=== PATIENT | female | born 1985 | race American Indian/Alaskan Native ===

== ENCOUNTER 2022-01-25 17:48 | Emergency (ER) | payer SELFPAY ==
--- NOTE | 2022-01-25 18:21 | Emergency Department Report ---
ED Back Pain/Injury HPI - General Chief Complaint: Back Pain/Injury Stated Complaint: BACK PAIN Time Seen by Provider: 01/25/22 18:06 Source: EMS Limitations: No Limitations - History of Present Illness Initial Comments: Patient presents secondary to back pain. [place] had onset of back pain. 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 She states that while doing that she had abrupt onset of right hip and back pain that radiates in the right leg. She has not been able to tolerate the pain tonight and came here. She stated home today because of the pain. She has no left leg pain. She is never had symptoms of this nature before. She does report a numbness and tingling down the posterior aspect of the right leg. This goes all the way down to the toes. There is no saddle anesthesia. She denies incontinence of bowel or bladder. - Related Data Previous Rx's Medication Instructions Recorded Last Taken Type HYDROcodone/APAP 5-325 [[place] 1 each PO Q6HR PRN #15 tablet 01/25/22 Unknown Rx 5/325] methylPREDNISolone [Medrol 4MG 4 mg PO DAILY #1 pack 01/25/22 Unknown Rx DOSEPAK (21 tabs)] Allergies Allergy/AdvReac Type Severity Reaction Status Date / Time No Known Allergies Allergy Verified 01/25/22 17:50 ED Review of Systems ROS: Stated complaint: BACK PAIN Other details as noted in HPI Comment: All other systems reviewed and negative Constitutional: denies: fever Eyes: denies: vision change ENT: denies: epistaxis Respiratory: denies: cough Cardiovascular: denies: chest pain Endocrine: denies: unexplained weight loss Gastrointestinal: denies: abdominal pain Genitourinary: denies: dysuria Musculoskeletal: as per HPI Skin: denies: rash Neurological: denies: headache Hematological/Lymphatic: denies: easy bruising ED Past Medical Hx - Past Medical History Previous Medical History?: No - Family History Family history: no significant - Medications Home Medications: Home Medications Medication Instructions Recorded Confirmed Last Taken Type HYDROcodone/APAP 5-325 [[place] 1 each PO Q6HR PRN #15 tablet 01/25/22 Unknown Rx 5/325] methylPREDNISolone [Medrol 4MG 4 mg PO DAILY #1 pack 01/25/22 Unknown Rx DOSEPAK (21 tabs)] ED Physical Exam - General Limitations: No Limitations, Other (Pulse ox noted and normal) General appearance: alert, in no apparent distress, obese - Head Head exam: Present: atraumatic, normocephalic - Eye Eye exam: Present: normal appearance, EOMI - ENT ENT exam: Present: normal external ear exam - Neck Neck exam: Present: normal inspection. Absent: tenderness - Respiratory Respiratory exam: Present: normal lung sounds bilaterally. Absent: respiratory distress - Cardiovascular Cardiovascular Exam: Present: regular rate, normal rhythm - GI/Abdominal GI/Abdominal exam: Present: soft. Absent: tenderness - Extremities Exam Extremities exam: Present: normal capillary refill - Back Exam Back exam: Present: paraspinal tenderness (Right sacroiliac joint). Absent: CVA tenderness (R), CVA tenderness (L) - Neurological Exam Neurological exam: Present: alert, oriented X3, CN II-XII intact, abnormal gait (Antalgic). Absent: motor sensory deficit - Psychiatric Psychiatric exam: Present: normal affect, normal mood - Skin Skin exam: Present: warm, dry ED Course Vital Signs 01/25/22 17:49 Temperature 98 F Pulse Rate 80 Respiratory 18 Rate Blood Pressure 126/62 [Left] O2 Sat by Pulse 99 Oximetry - Reevaluation(s) Reevaluation #1: 01/25/22 18:23 Patient was discharged ED Medical Decision Making - Medical Decision Making Patient presents with nontraumatic back pain that is consistent with sciatica. There was no saddle anesthesia that would suggest cord injury or cauda equina. She does not have a fever or history of IV drug abuse that would suggest epidural abscess. I am not concerned for fracture as it was no traumatic injury to cause this that she reports. She was discharged with outpatient measures. Critical care attestation.: If time is entered above; I have spent that time in minutes in the direct care of this critically ill patient, excluding procedure time. ED Disposition Clinical Impression: Right sciatic nerve pain Disposition: 01 HOME / SELF CARE / HOMELESS Is pt being admited?: No Condition: Stable Instructions: Sciatica Additional Instructions: USE ICE. RETURN FOR PROBLEMS. Prescriptions: methylPREDNISolone [Medrol 4MG DOSEPAK (21 tabs)] 4 mg PO DAILY #1 pack HYDROcodone/APAP 5-325 [[place] 5/325] 1 each PO Q6HR PRN #15 tablet PRN Reason: Pain Referrals: PRIMARY CARE, [Referring] - 3-5 Days KYLAH TRINIDAD MD [Staff Physician] - 3-5 Days Forms: Work/School Release Form(ED)
[2022-01-25] MEDS: predniSONE 20 MG TAB PO ONE (18:32)
[2022-01-25] MEDS: HYDROmorphone 1 MG/1 ML INJ IM ONE (18:34)
[2022-01-25 19:45] VITALS: BP 124/68
== END 2022-01-25 19:43 | disposition home or self-care (01) ==
LOC: ED 17:48
DX: M54.31 Sciatica, right side (principal)
CPT/HCPCS: 96372; 99283; J1170